=== PATIENT | female | born 1935 | race Caucasian/White ===

== ENCOUNTER 2017-08-19 15:29 | Emergency (ER) | payer OTHER ==
--- NOTE | 2017-08-19 15:33 | PDOC ---
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 The patient states she attended a [employer] and woke up the next day feeling sick. She states she took a Claritin this morning without relief of her symptoms. She states she feels like she has the flu. The patient also states she has an appetite, however, can not eat because her mouth feels too dry and her throat hurts. She denies chest pain, shortness of breath, and dizziness. She denies nausea, vomit, diarrhea and constipation. She denies dysuria, frequency, urgency and hematuria. Allergies: NKDA Past surgical history: Appendectomy PCP: Dr. Toy Tarango <Abbey Land - Last Filed: 08/19/17 15:47> <Deepa Cheek - Last Filed: 08/20/17 07:25> - General Chief Complaint: Respiratory Stated Complaint: COUGH Time Seen by Provider: 08/19/17 15:31 Past History <Abbey Land - Last Filed: 08/19/17 15:47> - Past Medical History Anemia: Yes Asthma: No Cancer: No Cardiac Disorders: Yes (MILD AORTIC STENOSIS) CVA: No COPD: (HX OF BRONCHITIS) CHF: No Dementia: No Diabetes: No GI Disorders: Yes (DIVERTICULOSIS, GASTRIC ULCER, REFLUX) Disorders: No HTN: Yes Hypercholesterolemia: Yes Liver Disease: No Seizures: No Thyroid Disease: No - Surgical History Abdominal Surgery: Yes Appendectomy: Yes Cardiac Surgery: No Cholecystectomy: No Lung Surgery: No Neurologic Surgery: No Orthopedic Surgery: No - Suicide/Smoking/Psychosocial Hx Smoking History: Never smoked Have you smoked in the past 12 months: No Hx Alcohol Use: No Drug/Substance Use Hx: No Substance Use Type: None <Deepa Cheek - Last Filed: 08/20/17 07:25> - Past Medical History Allergies/Adverse Reactions: Allergies Allergy/AdvReac Type Severity Reaction Status Date / Time No Known Allergies Allergy Verified 08/19/17 15:30 Home Medications: Ambulatory Orders Furosemide [Lasix -] 20 mg PO DAILY 11/21/14 Alendronate Na [Fosamax] 70 mg PO Q7D 08/19/17 Guaifenesin AC [Robitussin AC -] 5 ml PO HS PRN #20 liquid MDD 5 mL 08/19/17 Olmesartan Medoxomil [Benicar (Nf)] 40 mg PO DAILY 08/19/17 Omeprazole 40 mg PO DAILY 08/19/17 Review of Systems - Review of Systems Able to Perform ROS?: Yes Comments:: 08/19/17 15:48 GENERAL/CONSTITUTIONAL: (+) subjective fever, chills. NO weakness. HEAD, EYES, EARS, NOSE AND THROAT: (+) sore throat. Dry mouth. Nasal congestion. No change in vision. No ear pain or discharge. CARDIOVASCULAR: No chest pain or shortness of breath. RESPIRATORY: (+) cough, No wheezing, or hemoptysis. GASTROINTESTINAL: No nausea, vomiting, diarrhea or constipation. GENITOURINARY: No dysuria, frequency, or change in urination. MUSCULOSKELETAL: (+) diffuse body aches. No joint or muscle swelling. No neck or back pain. SKIN: No rash NEUROLOGIC: (+) headache, No vertigo, loss of consciousness, or change in strength/sensation. ENDOCRINE: No increased thirst. No abnormal weight change. HEMATOLOGIC/LYMPHATIC: No anemia, easy bleeding, or history of blood clots. ALLERGIC/IMMUNOLOGIC: No hives or skin allergy. <Abbey Land - Last Filed: 08/19/17 15:47> *Physical Exam - Vital Signs Last Vital Signs Temp Pulse Resp BP Pulse Ox 99.2 F 87 22 127/73 97 08/19/17 15:30 08/19/17 15:30 08/19/17 15:30 08/19/17 15:30 08/19/17 15:30 <Abbey Land - Last Filed: 08/19/17 15:47> - Physical Exam Comments: GENERAL: Awake, alert, and fully oriented, in no acute distress. Appears ill but nontoxic. HEAD: No signs of trauma EYES: PERRLA, EOMI, sclera anicteric, conjunctiva clear ENT: Auricles normal inspection, hearing grossly normal, nares patent, oropharynx clear without exudates. Dry mucosa NECK: Normal ROM, supple, no lymphadenopathy, JVD, or masses LUNGS: Breath sounds equal, clear to auscultation bilaterally. No wheezes, and no crackles. Intermittent hacking cough. HEART: Regular rate and rhythm, normal S1 and S2, no murmurs, rubs or gallops ABDOMEN: Soft, nontender, normoactive bowel sounds. No guarding, no rebound. No masses EXTREMITIES: Normal range of motion, no edema. No clubbing or cyanosis. No cords, erythema, or tenderness NEUROLOGICAL: Cranial nerves II through XII grossly intact. Normal speech, normal gait SKIN: Warm, Dry, normal turgor, no rashes or lesions noted. <Deepa Cheek - Last Filed: 08/20/17 07:25> ED Treatment Course - LABORATORY CBC & Chemistry Diagram: 08/19/17 15:45 08/19/17 16:35 <Deepa Cheek - Last Filed: 08/20/17 07:25> Medical Decision Making - Medical Decision Making CXR reviewed, no focal consolidation. Flu swab positive. Patient is out of the window for tamiflu. She improved with neb treatment and tylenol in ED. Good air movement on lung exam, no signs of tachypnea. Stable for DC home. <Deepa Cheek - Last Filed: 08/20/17 07:25> *DC/Admit/Observation/Transfer - Attestations Scribe Attestion: 08/19/17 15:50 Documentation prepared by Abbey Land, acting as medical driver for Deepa Cheek MD, <[place] - Last Filed: 08/19/17 15:47> - Discharge Dispostion Admit: No <Deepa Cheek - Last Filed: 08/20/17 07:25> Diagnosis at time of Disposition: Viral URI with cough - Discharge Dispostion Disposition: HOME Condition at time of disposition: Stable - Prescriptions Prescriptions: Guaifenesin AC [Robitussin AC -] 5 ml PO HS PRN #20 liquid MDD 5 mL PRN Reason: Cough - Referrals Referrals: Toy Tarango MD [Primary Care Provider] - - Patient Instructions Printed Discharge Instructions: DI for Viral Upper Respiratory Infection -- Adult, DI for Influenza -- Adult Print Language: BELARUSIAN - Post Discharge Activity
[2017-08-19 15:42] VITALS: BP 127/73; PULSE 87; BMI 30.2
[2017-08-19] MEDS ORDERED: ACETAMINOPHEN 1000 MG/100 ML VIAL (NON FORMULARY) IVPB ONE (15:43)
[2017-08-19] MEDS ORDERED: SODIUM CHLORIDE 1,000 ML IV STA (15:43)
[2017-08-19] MEDS ORDERED: ACETAMINOPHEN INJECTION 100 ML IVPB ONE (15:51)
[2017-08-19 16:28] LABS: BASO % 0.6 % (0-2.0); EOS % 5.5 % (0-4.5); HEMATOCRIT 35.8 % (32.4-45.2); HEMOGLOBIN 11.9 GM/dl (10.7-15.3); LYMPH % 20.2 % (8-40); MCH 30.4 pg (25.7-33.7); MCHC 33.3 g/dl (32.0-36.0); MEAN CELL VOLUME 91.3 fl (80-96); MEAN PLT VOLUME 10.1 fl (7.5-11.1); MONO % 9.8 % (3.8-10.2); NEUT % 63.9 % (42.8-82.8); PLATELET COUNT 144 K/MM3 (134-434); RBC 3.92 M/mm3 (3.60-5.2); RDW 13.4 % (11.6-15.6); WHITE BLOOD COUNT 4.4 K/mm3 (4.0-10.8)
[2017-08-19 17:08] LABS: ALBUMIN 3.9 g/dl (3.5-5.0); ALK PHOS 54 U/L (32-92); ANION GAP 9 (8-16); BILIRUBIN,TOTAL 0.8 mg/dl (0.2-1.0); BLOOD UREA NITROGEN 16 mg/dl (7-18); CALCIUM 8.7 mg/dl (8.4-10.2); CHLORIDE 104 mmol/L (98-107); CO2 22 mmol/L (22-28); CREATININE 0.8 mg/dl (0.6-1.3); GLUCOSE,RANDOM 98 mg/dl (74-106); POTASSIUM 3.9 mmol/L (3.5-5.1); SGOT/AST 33 U/L (10-42); SGPT/ALT 29 U/L (10-40); SODIUM 135 mmol/L (136-145); TOT PROT 6.9 g/dl (6.4-8.3)
[2017-08-19 17:09] VITALS: TEMP 98.9
[2017-08-19] MEDS ORDERED: ALBUTEROL SO4 0.083% IH SOL 2.5 MG/3 ML VIAL.NEB. NEB ONE ×2 (17:44)
== END 2017-08-19 18:14 | disposition home or self-care (01) ==
LOC: FER 15:29
PROC: 3E0F7GC Introduction of Other Therapeutic Substance into Respiratory Tract, Via Natural or Artificial Opening (ICD-10-PCS; principal; 2017-08-19)
PROC: 3E033NZ Introduction of Analgesics, Hypnotics, Sedatives into Peripheral Vein, Percutaneous Approach (ICD-10-PCS; 2017-08-19)
PROC: 3E0337Z Introduction of Electrolytic and Water Balance Substance into Peripheral Vein, Percutaneous Approach (ICD-10-PCS; 2017-08-19)
DX: J06.9 Acute upper respiratory infection, unspecified (principal); R05 Cough
CPT/HCPCS: 36415; 71046-TC; 80053; 85025; 87040; 87804; 99284-25

== ENCOUNTER 2018-06-27 06:32 | Day surgery (SDC) | payer OTHER ==
[2018-05-21 11:34] VITALS: BMI 29.2
[2018-06-27] MEDS: CYCLOPENTOLATE 2% OPHTH SOLN 2 ML BOTTLE ONE ×3 (07:00→07:10)
[2018-06-27] MEDS: PHENYLEPHRINE 2.5% OPHTH SOLN 15 ML BOTTLE ONE ×3 (07:00→07:10)
[2018-06-27] MEDS: TROPICAMIDE 1% OPHTH SOLN 15 ML BOTTLE ONE ×3 (07:00→07:10)
[2018-06-27] MEDS: CIPROFLOXACIN 0.3% EYE DROPS 5 ML BOTTLE ONE ×3 (07:00→07:10)
[2018-06-27] MEDS ORDERED: CARBACHOL 0.01% INTRA-OCULAR 1.5 ML VIAL ONE (07:18)
[2018-06-27] MEDS ORDERED: TETRACAINE 0.5% OPHTH SOLN 2 ML BOTTLE ONE ×2 (07:18→07:19)
[2018-06-27] MEDS ORDERED: LIDOCAINE 1% P/F 10 MG/ML VIAL ONE (07:18)
[2018-06-27] MEDS ORDERED: NEO/POLYMYX B SULF/DEXAMETH OPHTHALMIC 5ML BOTTLE ONE (07:18)
[2018-06-27] MEDS ORDERED: BSS (NA/CA/MG/K) BALANCED SALT SOLUTION OPHTH SOLN 15 ML BOTTLE ONE (07:18)
[2018-06-27] MEDS ORDERED: EPINEPHrine 1:1,000 1 MG/1 ML - 30ML VIAL (INJECTION) ONE (07:19)
[2018-06-27] MEDS ORDERED: MIDAZOLAM HCL 2 MG/2 ML SINGLE DOSE VIAL ONE (07:30)
--- NOTE | 2018-06-27 08:35 | OP ---
DATE OF OPERATION: 06/27/2018 OPERATIVE PROCEDURE: Lens Phacoemulsification with Posterior Chamber Intraocular Lens Placement Left Eye PREOPERATIVE DIAGNOSIS: Visually Significant Cataract of Left Eye POSTOPERATIVE DIAGNOSIS: Visually Significant Cataract of Left Eye SURGEON: Abhi Mccray M.D. ANESTHESIA: MAC ANESTHESIOLOGIST: PROCEDURE: The patient was brought to the operating room and placed under monitored anesthesia care by Anesthesia. A drop of Tetracaine was then placed over the left eye. The patient was then prepped and draped in the usual sterile manner. A speculum was then placed over the left eye. The eye was then well irrigated with copious amounts of BSS (balanced salt solution). The operating microscope was then moved into position. A paracentesis was performed using a 15 degree blade. At this point 0.5 mL of 1% preservative-free lidocaine was injected into the anterior chamber. Amvisc plus was then injected into the anterior chamber. A clear corneal incision was then formed using a 2.2 mm keratome. A capsulorrhexis was then performed in a continuous circular fashion beginning with a cystotome, completed with an Utratas forceps. Hydrodissection was then performed using BSS on a cannula. The phaco probe was then introduced through the corneal wound and the cataract was removed using the phaco chop technique. Approximately 3 seconds of absolute phaco time was used. The remaining cortex was then removed using irrigation and aspiration with an I/A probe. The capsule was then filled with regular Amvisc and the capsule was noted to be intact. A previously selected foldable posterior chamber intraocular lens was then injected into the capsule through the corneal wound using a lens injector. It was then dialed into position using a Sinskey hook. The Amvisc was then removed using irrigation and aspiration. Miostat was then injected through the paracentesis to constrict the pupil. The paracentesis and corneal wound were then hydrated and noted to be water tight. A drop of Maxitrol was then placed over the eye. The speculum was removed and clear shield was taped over the eye. The patient tolerated the procedure well and there were no surgical complications. The patient was asked to follow up in my office the next day. ABHI MCCRAY M.D. DEBBI/[id number]
[2018-06-27 09:02] VITALS: BP 143/67; PULSE 68; TEMP 97.9
== END 2018-06-27 09:03 | disposition home or self-care (01) ==
LOC: FASU 06:32
PROVIDERS: ATTEND Ophthalmology
PROC: 08RK3JZ Replacement of Left Lens with Synthetic Substitute, Percutaneous Approach (ICD-10-PCS; principal; 2018-06-27 07:55)
DX: H26.8 Other specified cataract (principal)

== ENCOUNTER 2018-11-28 18:49 | Emergency (ER) | payer OTHER ==
[2018-11-28 18:54] VITALS: BP 122/72; PULSE 83; TEMP 98.8; BMI 28.7
--- NOTE | 2018-11-28 19:08 | PDOC ---
History of Present Illness - General Chief Complaint: Cold Symptoms Stated Complaint: COUGH Time Seen by Provider: 11/28/18 19:08 - History of Present Illness Initial Comments: 11/28/18 20:31 The patient is a 83 year old female, with a significant PMH of anemia, mild aortic stenosis, bronchitis, diverticulosis, gastric ulcer, HTN,and HDL who presents to the emergency department complaining of coughing that began approximately 5 to 6 days ago. The patient notices yellowish whitish phlegm with the cough. The patient states she endorses associated symptoms of fever ( not measured), diarrhea, chills, and SOB. The patient denies any recent travels or sick contact. Denies chest pain, headache and dizziness. Denies nausea, vomit, and constipation.Denies dysuria, frequency, urgency and hematuria. Allergies: NKDA Past surgical history: None reported Social history: None reported PCP: Nadine Kramer ADULT ROS GENERAL/CONSTITUTIONAL:+Fever +Chills. No weakness. HEAD, EYES, EARS, NOSE AND THROAT: No change in vision. No ear pain or discharge. No sore throat. CARDIOVASCULAR: No chest pain or shortness of breath. RESPIRATORY:+cough. No wheezing, or hemoptysis. GASTROINTESTINAL:+Diarrhea No nausea, vomiting or constipation. GENITOURINARY: No dysuria, frequency, or change in urination. MUSCULOSKELETAL: No joint or muscle swelling or pain. No neck or back pain. SKIN: No rash NEUROLOGIC: No headache, vertigo, loss of consciousness, or change in strength/ sensation. ENDOCRINE: No increased thirst. No abnormal weight change. HEMATOLOGIC/LYMPHATIC: No anemia, easy bleeding, or history of blood clots. ALLERGIC/IMMUNOLOGIC: No hives or skin allergy. ADULT EXAM GENERAL: Awake, alert, and fully oriented, in no acute distress HEAD: No signs of trauma EYES: PERRLA, EOMI, sclera anicteric, conjunctiva clear ENT: Auricles normal inspection, hearing grossly normal, nares patent, oropharynx clear without exudates. Moist mucosa NECK: Normal ROM, supple, no lymphadenopathy, JVD, or masses LUNGS:+Scattered bilateral expiratory wheezing HEART: Regular rate and rhythm, normal S1 and S2, no murmurs, rubs or gallops ABDOMEN: Soft, nontender, normoactive bowel sounds. No guarding, no rebound. No masses EXTREMITIES:+trace bilateral ankle pitting edema. NEUROLOGICAL: Cranial nerves II through XII grossly intact. Normal speech, normal gait SKIN: Warm, Dry, normal turgor, no rashes or lesions noted. Past History - Past Medical History Allergies/Adverse Reactions: Allergies Allergy/AdvReac Type Severity Reaction Status Date / Time No Known Allergies Allergy Verified 11/28/18 18:50 Home Medications: Ambulatory Orders Azilsartan Medoxomil [Edarbi] 40 mg PO HS 05/21/18 Albuterol Sulfate Inhaler - [Ventolin HFA Inhaler -] 1 inh PO Q6H PRN #1 inh Azithromycin 250 mg PO DAILY #4 tablet 11/28/18 Benzonatate [Tessalon Pearls -] 100 mg PO TID PRN #21 capsule 11/28/18 Anemia: Yes Asthma: No Cancer: No Cardiac Disorders: Yes (MILD AORTIC STENOSIS) CVA: No COPD: No (HX OF BRONCHITIS) CHF: No Dementia: No Diabetes: No GI Disorders: Yes (DIVERTICULOSIS, GASTRIC ULCER, REFLUX) Disorders: No HTN: Yes Hypercholesterolemia: Yes Liver Disease: No Seizures: No Thyroid Disease: No - Surgical History Abdominal Surgery: No (SEE BELOW) Appendectomy: No Cardiac Surgery: No Cholecystectomy: No Lung Surgery: No Neurologic Surgery: No Orthopedic Surgery: No - Suicide/Smoking/Psychosocial Hx Smoking History: Never smoked Have you smoked in the past 12 months: No Hx Alcohol Use: No Drug/Substance Use Hx: No Substance Use Type: None Hx Substance Use Treatment: No *Physical Exam - Vital Signs Last Vital Signs Temp Pulse Resp BP Pulse Ox 98.8 F 83 19 122/72 97 11/28/18 18:49 11/28/18 18:49 11/28/18 18:49 11/28/18 18:49 11/28/18 18:49 ED Treatment Course - RADIOLOGY Radiology Studies Ordered: Category Date Time Status CHEST PA & LAT [RAD] Stat Radiology 11/28/18 18:59 Ordered Medical Decision Making - Medical Decision Making Chest x-ray performed: Interpretation by -no evidence of infiltrate/ effusion or other acute pathology. Clinical presentation most consistent with acute bronchitis. DuoNeb nebulizer treatment given. Patient feels marked relief in breathing after the nebulizer treatment. Reexamination of lungs reveals decrease in wheezing and significant increase in air exchange. Patient will be started on azithromycin course with first dose of 500 mg administered here. Remainder of the course of 250 mg daily for 4 days sent to her pharmacy. Albuterol inhaler to be used up to 3 times a day as needed for wheezing also will be prescribed. Patient asked for medication for coughing and prescription for Tessalon Perles 3 times a day sent to her pharmacy. Patient should return to the emergency room if she has persistent shortness of breath, severe cough or persistent high fever. Patient has follow-up appointment with her PMD scheduled on Monday , if the *DC/Admit/Observation/Transfer Diagnosis at time of Disposition: Bronchitis - Discharge Dispostion Disposition: HOME Condition at time of disposition: Stable - Prescriptions Prescriptions: Albuterol Sulfate Inhaler - [Ventolin HFA Inhaler -] 1 inh PO Q6H PRN #1 inh PRN Reason: Wheezing Azithromycin 250 mg PO DAILY #4 tablet Benzonatate [Tessalon Pearls -] 100 mg PO TID PRN #21 capsule PRN Reason: Cough - Referrals Referrals: Nadine Kramer MD [Primary Care Provider] - - Patient Instructions Printed Discharge Instructions: DI for Acute Bronchitis Additional Instructions: Rest; drink plenty of water Azithromycin 250 mg daily for the next 4 days; next dose tomorrow Albuterol inhaler: 1 puff every 6 hours as needed for wheezing/shortness of breath Tessalon Perle one capsule by mouth up to 3 times a day as needed for cough If the test for influenza is positive, we will call you and send prescription to pharmacy Return to ER if you have shortness of breath/chest pain/high fever Follow-up with your doctor on December 05 as scheduled - Post Discharge Activity
[2018-11-28] MEDS ORDERED: ALBUTEROL SO4 2.5/IPRATROPIUM 0.5 INH SOL 3 ML VIAL.NEB. NEB ONE ×2 (20:28→20:29)
[2018-11-28] MEDS ORDERED: AZITHROMYCIN 250 MG TABLET PO ONE (21:12)
[2018-11-28] MEDS ORDERED: AZITHROMYCIN 250 MG TABLET ONE (21:23)
== END 2018-11-28 21:28 | disposition home or self-care (01) ==
LOC: FER 18:49
PROC: 3E0F7GC Introduction of Other Therapeutic Substance into Respiratory Tract, Via Natural or Artificial Opening (ICD-10-PCS; principal; 2018-11-28)
DX: J40 Bronchitis, not specified as acute or chronic (principal); E78.00 Pure hypercholesterolemia, unspecified; I10 Essential (primary) hypertension; I35.0 Nonrheumatic aortic (valve) stenosis
CPT/HCPCS: 71046-TC-FY; 87804; 94640; 99282-25

== ENCOUNTER 2019-07-13 20:38 | Emergency (ER) | payer OTHER ==
[2019-07-13 20:57] VITALS: BP 140/72; PULSE 74; TEMP 99.1; BMI 28.6
[2019-07-13] MEDS ORDERED: ALBUTEROL SO4 2.5/IPRATROPIUM 0.5 INH SOL 3 ML VIAL.NEB. NEB ONE ×2 (21:18→21:20)
[2019-07-13] MEDS ORDERED: DEXAMETHASONE SOD PHOSPHATE 10 MG/1 ML VIAL IVPUSH ONE (21:18)
[2019-07-13] MEDS ORDERED: DEXAMETHASONE SOD PHOSPHATE 10 MG/1 ML VIAL ONE (21:20)
--- NOTE | 2019-07-13 21:23 | PDOC ---
Documentation entered by Krista Montiel SCRIBE, acting as scribe for Gauri Morse MD. Gauri Morse MD: This documentation has been prepared by the manfredibe, Krista Montiel SCRIBE, under my direction and personally reviewed by me in its entirety. I confirm that the documentation accurately reflects all work, treatment, procedures, and medical decision making performed by me. History of Present Illness - General Chief Complaint: Respiratory Stated Complaint: COUGH Time Seen by Provider: 07/13/19 20:41 History Source: Patient Exam Limitations: No Limitations - History of Present Illness Initial Comments: 07/13/19 21:26 The patient is a 84 year old female who presents to the ED complaining of a non productive cough that began approximately a month ago and has progressively worsened this past week prompting her to the ER. She denies recent fevers, chills, headache or dizziness. She denies recent nausea, vomiting, diarrhea or constipation. She denies recent dysuria, frequency, urgency or hematuria. She denies recent chest pain or shortness of breath. PAST MEDICAL HISTORY: anemia, mild aortic stenosis, bronchitis, diverticulosis , gastric ulcer, HTN,and HDL PAST SURGICAL HISTORY: no significant history FAMILY HISTORY: no pertinent history SOCIAL HISTORY: Pt lives with family. MEDICATIONS: reviewed ALLERGIES: NKDA PCP: Dr. Kramer General: No fevers or chills, no weakness, no weight loss HEENT: No change in vision. No sore throat,. No ear pain CardioVascular: No chest pain or shortness of breath Respiratory:+ cough. No wheezing. Gastrointestinal: no nausea, vomiting, diarrhea or constipation, No rectal bleeding Genitourinary: No dysuria, hematuria, or frequency Musculoskeletal: No joint or muscle pain or swelling Neurologic: No headache, vertigo, dizziness or loss of consciousness Psychiatric: nor depression Skin: No rashes or easy bruising Endocrine: no increased thirst or abnormal weight change Allergic: no skin or latex allergy All other systems reviewed and normal General: Well-nourished well-developed individual, no acute distress HEENT: Throat: Normal, tonsils normal, no erythema or exudate Neck: Supple, no meningeal signs, no lymphadenopathy Eyes::Pupils equal reactive and round, extraocular motion intact Chest: Nontender to palpation Cardiac: S1-S2 normal, regular rate and rhythm, no murmurs rubs or gallops Respiratory:+ mild expiratory wheezing in upper lungs +dry non productive cough Abdomen: Soft, nondistended, normal bowel sounds, nontender to palpation diffusely Extremities: Warm, dry, no cyanosis, clubbing, or edema Skin: No rashes Neuro: Alert and oriented x3, nonfocal exam, grossly intact, normal gait Psych: Normal mood and affect 07/13/19 22:33 Reevaluation the albuterol neb and Decadron did not appear to improve her symptoms significantly. Patient work-up was otherwise negative including a BNP and chest x-ray and labs. Patient is also ready taking Augmentin which she will continue I sent a prescription to her pharmacy for some Jerald Gibsones Patient instructed to follow-up with her primary care doctor on Monday. Is this a multiple visit Asthma Patient?: No Past History - Past Medical History Allergies/Adverse Reactions: Allergies Allergy/AdvReac Type Severity Reaction Status Date / Time No Known Allergies Allergy Verified 11/28/18 18:50 Home Medications: Ambulatory Orders Azilsartan Medoxomil [Edarbi] 40 mg PO HS 05/21/18 Benzonatate [Tessalon Pearls -] 100 mg PO TID PRN #21 capsule 11/28/18 Amox-Tr/K Cl [Augmentin - 875Mg Tablet] 1 tab PO BID 07/13/19 Benzonatate [Tessalon Pearls -] 100 mg PO TID #21 capsule 07/13/19 Cholecalciferol (Vitamin D3) [D3-50] 50,000 unit PO WEEKLY 07/13/19 Ferrous Sulfate [Feosol] 325 mg PO TID 07/13/19 Guaifenesin/Dextromethorphan [Guaifenesin Dm Syrup] 5 ml PO Q4H PRN 07/13/19 Guaifenesin/Dextromethorphan [Mucus Dm Max ER 1,200-60 mg Tb] 1 each PO Q4H PRN 07/13/19 Meclizine HCl [Antivert -] 12.5 mg PO BID PRN 07/13/19 Anemia: Yes Asthma: No Cancer: No Cardiac Disorders: Yes (MILD AORTIC STENOSIS) CVA: No COPD: No (HX OF BRONCHITIS) CHF: No Dementia: No Diabetes: No GI Disorders: Yes (DIVERTICULOSIS, GASTRIC ULCER, REFLUX) Disorders: No HTN: Yes Hypercholesterolemia: Yes Liver Disease: No Seizures: No Thyroid Disease: No - Surgical History Abdominal Surgery: No Appendectomy: No Cardiac Surgery: No Cholecystectomy: No Lung Surgery: No Neurologic Surgery: No Orthopedic Surgery: No - Psycho Social/Smoking Cessation Hx Smoking History: Never smoked Have you smoked in the past 12 months: No Hx Alcohol Use: No Drug/Substance Use Hx: No Substance Use Type: None Hx Substance Use Treatment: No *Physical Exam - Vital Signs Last Vital Signs Temp Pulse Resp BP Pulse Ox 99.1 F 74 16 140/72 98 07/13/19 20:39 07/13/19 20:39 07/13/19 20:39 07/13/19 20:39 07/13/19 20:39 ED Treatment Course - LABORATORY CBC & Chemistry Diagram: 07/13/19 21:15 07/13/19 21:15 - RADIOLOGY Radiology Studies Ordered: Category Date Time Status CHEST X-RAY PORTABLE* [RAD] Stat Radiology 07/13/19 20:47 Taken Discharge - Discharge Information Problems reviewed: Yes Clinical Impression/Diagnosis: Cough Condition: Good Disposition: HOME - Admission No - Additional Discharge Information Prescriptions: Benzonatate [Tessalon Pearls -] 100 mg PO TID #21 capsule - Follow up/Referral Referrals: Toy Tarango MD [Primary Care Provider] - - Patient Discharge Instructions Additional Instructions: Your work-up was negative for any pneumonia, bronchitis or acute causes of your cough. I sent a prescription to your pharmacy for Tessalon Perles which should help suppress the cough. Call your doctor on Monday and follow-up with your doctor. Bring copies of your EKG and blood work with you when you go to your doctor. Return to the emergency department immediately with ANY new, persistent or worsening symptoms. Continue any medications as previously prescribed by your physician. You should follow up with your primary doctor as soon as possible regarding today's emergency department visit. . Please make sure your doctor reviews the results of your emergency evaluation. Thank you for coming to the Emergency Department today for your care. It was a pleasure to see you today. Please note that your evaluation is INCOMPLETE until you follow-up with your doctor. - Post Discharge Activity
[2019-07-13 21:48] LABS: BASO % 0.4 % (0-2.0); EOS % 3.6 % (0-4.5); HEMATOCRIT 31.4 % (32.4-45.2); HEMOGLOBIN 10.3 GM/dl (10.7-15.3); LYMPH % 38.9 % (8-40); MCH 30.5 pg (25.7-33.7); MCHC 32.7 g/dl (32.0-36.0); MEAN CELL VOLUME 93.2 fl (80-96); MEAN PLT VOLUME 9.9 fl (7.5-11.1); MONO % 11.8 % (3.8-10.2); NEUT % 45.3 % (42.8-82.8); PLATELET COUNT 167 K/MM3 (134-434); RBC 3.37 M/mm3 (3.60-5.2); RDW 13.2 % (11.6-15.6); WHITE BLOOD COUNT 4.2 K/mm3 (4.0-10.8)
[2019-07-13 21:54] LABS: ALBUMIN 4.1 g/dl (3.4-5.0); BILIRUBIN,TOTAL 0.6 mg/dl (0.2-1); CALCIUM 8.9 mg/dl (8.5-10); POTASSIUM 4.1 mmol/L (3.5-5.1); TOT PROT 7.4 g/dl (6.4-8.2)
--- NOTE | 2019-07-15 10:42 | EKG ---
Test Reason : Blood Pressure : / mmHG Vent. Rate : 066 BPM Atrial Rate : 066 BPM P-R Int : 268 ms QRS Dur : 090 ms QT Int : 386 ms P-R-T Axes : 025 005 013 degrees QTc Int : 404 ms SINUS RHYTHM WITH 1ST DEGREE A-V BLOCK OTHERWISE NORMAL ECG WHEN COMPARED WITH ECG OF 13-FEB-2010 11:23, [place] INTERVAL HAS INCREASED Confirmed by BRYCE JOHNSON MD ([id number]) on 07/15/2019 10:42:03 AM Referred By: Confirmed By:BRYCE JOHNSON MD
== END 2019-07-13 22:41 | disposition home or self-care (01) ==
LOC: SUPCPDRO 20:38 → FER 20:38
PROC: 3E0F7GC Introduction of Other Therapeutic Substance into Respiratory Tract, Via Natural or Artificial Opening (ICD-10-PCS; principal; 2019-07-13)
PROC: 3E033GC Introduction of Other Therapeutic Substance into Peripheral Vein, Percutaneous Approach (ICD-10-PCS; 2019-07-13)
DX: R05 Cough (principal); D64.9 Anemia, unspecified; I10 Essential (primary) hypertension; E78.00 Pure hypercholesterolemia, unspecified; I35.0 Nonrheumatic aortic (valve) stenosis; K21.9 Gastro-esophageal reflux disease without esophagitis
CPT/HCPCS: 36415; 71045-TC-FY; 80053; 82550; 82553; 83880; 84484; 85025; 87040; 93005; 99282-25; J1100

== ENCOUNTER 2021-11-06 20:27 | Emergency (ER) | payer OTHER ==
[2021-11-06 20:57] VITALS: BP 141/93; PULSE 68; BMI 28.8
[2021-11-06] MEDS ORDERED: ACETAMINOPHEN 1000 MG/100 ML BAG IVPB ONE (21:09)
[2021-11-06] MEDS ORDERED: SODIUM CHLORIDE 1,000 ML IV SCH (21:15)
[2021-11-06] MEDS ORDERED: ACETAMINOPHEN INJECTION 100 ML IVPB ONE (21:32)
[2021-11-06 22:18] LABS: ALBUMIN 3.9 g/dl (3.4-5.0); BILIRUBIN,TOTAL 0.8 mg/dl (0.2-1); CALCIUM 9.1 mg/dl (8.5-10); CREATININE 0.8 mg/dl (0.55-1.3); TOT PROT 7.2 g/dl (6.4-8.2)
[2021-11-06 23:19] LABS: BASO % 0.5 % (0-2.0); EOS % 2.4 % (0-4.5); HEMATOCRIT 36.6 % (32.4-45.2); HEMOGLOBIN 12.4 GM/dL (10.7-15.3); LYMPH % 22.5 % (8-40); MCH 30.5 pg (25.7-33.7); MCHC 33.9 g/dl (32.0-36.0); MEAN CELL VOLUME 89.9 fl (80-96); MONO % 10.4 % (3.8-10.2); NEUT % 64.2 % (42.8-82.8); PLATELET COUNT 146 10^3/uL (134-434); RBC 4.07 M/mm3 (3.60-5.2); RDW 14.8 % (11.6-15.6); WHITE BLOOD COUNT 6.2 K/mm3 (4.0-10.0)
[2021-11-06] MEDS ORDERED: AZITHROMYCIN IVPB 500 MG in DEXTROSE 5%-WATER - 250 ML IVPB ONE (23:26)
[2021-11-06] MEDS ORDERED: AZITHROMYCIN 500 MG VIAL IVPB ONE (23:26)
[2021-11-07 00:21] VITALS: TEMP 98.1
== END 2021-11-07 00:21 | disposition home or self-care (01) ==
LOC: FER 20:27
PROC: 3E0333Z Introduction of Anti-inflammatory into Peripheral Vein, Percutaneous Approach (ICD-10-PCS; principal; 2021-11-06)
PROC: 3E03329 Introduction of Other Anti-infective into Peripheral Vein, Percutaneous Approach (ICD-10-PCS; 2021-11-06)
DX: J20.9 Acute bronchitis, unspecified (principal)
CPT/HCPCS: 36415; 71045-TC-FY; 80053; 81003; 81015; 83605; 83880; 85025; 87040; 87086; 93005; 99285-25; C9803-CS; U0003; U0005

== ENCOUNTER 2023-08-18 17:40 | Emergency (ER) | payer OTHER ==
[2023-08-18 18:02] VITALS: BP 110/72; PULSE 93; RESP 16; TEMP 98; BMI 33.6
[2023-08-18] MEDS ORDERED: ACETAMINOPHEN 325 MG TABLET (FP) PO ONE (18:05)
[2023-08-18] MEDS ORDERED: ACETAMINOPHEN 325 MG TABLET (FP) ONE (18:07)
== END 2023-08-18 18:42 | disposition home or self-care (01) ==
LOC: FER 17:40
DX: R50.9 Fever, unspecified (principal); R05.9 Cough, unspecified; R09.81 Nasal congestion; M79.10 Myalgia, unspecified site; J06.9 Acute upper respiratory infection, unspecified; U07.1 COVID-19
CPT/HCPCS: 0241U-QW; 71046-TC-FY; 99284-25

== ENCOUNTER 2023-12-14 11:52 | Emergency (ER) | payer OTHER ==
[2023-12-14 12:16] VITALS: RESP 20; BMI 27.1
[2023-12-14] MEDS ORDERED: ALBUTEROL SO4 2.5/IPRATROPIUM 0.5 INH SOL 3 ML VIAL.NEB. NEB ONE (12:34)
[2023-12-14] MEDS: ALBUTEROL SO4 2.5/IPRATROPIUM 0.5 INH SOL 3 ML VIAL.NEB. NEB ONE (12:44)
[2023-12-14 13:59] LABS: HEMATOCRIT 35.2 % (32.4-45.2); MCH 31.2 pg (25.7-33.7); MEAN CELL VOLUME 91.6 fl (80-96); MEAN PLT VOLUME 10.3 fl (7.5-11.1); PLATELET COUNT 126.4 10^3/uL (134-434); RBC 3.84 10^6/uL (3.60-5.2); RDW 14.7 % (11.6-15.6); WHITE BLOOD COUNT 5.7 10^3/uL (4.0-10.8)
[2023-12-14] MEDS: DEXAMETHASONE SOD PHOSPHATE 10 MG/1 ML VIAL IVPUSH ONE (14:02)
[2023-12-14] MEDS ORDERED: AZITHROMYCIN 500 MG TABLET ONE (14:08)
[2023-12-14] MEDS ORDERED: predniSONE 20 MG TABLET (UD) ONE (14:08)
[2023-12-14] MEDS: AZITHROMYCIN 500 MG TABLET PO ONE (14:11)
[2023-12-14] MEDS: predniSONE 20 MG TABLET (UD) PO ONE (14:11)
[2023-12-14 14:31] LABS: ALBUMIN 4.5 g/dl (3.4-5.0); BILIRUBIN,TOTAL 0.8 mg/dl (0.2-1); CALCIUM 8.8 mg/dl (8.5-10.1); CREATININE 1.2 mg/dl (0.6-1.3); POTASSIUM 3.8 mmol/L (3.5-5.1); TOT PROT 7.6 g/dl (6.4-8.2)
[2023-12-14 15:48] LABS: PLATELET ESTIMATE SLT DECREASE
[2023-12-14 15:53] VITALS: BP 127/57; PULSE 59; TEMP 98.3
== END 2023-12-14 16:06 | disposition home or self-care (01) ==
LOC: FER 11:52
PROC: 3E030GC Introduction of Other Therapeutic Substance into Peripheral Vein, Open Approach (ICD-10-PCS; principal; 2023-12-14)
PROC: 3E0F7GC Introduction of Other Therapeutic Substance into Respiratory Tract, Via Natural or Artificial Opening (ICD-10-PCS; 2023-12-14)
DX: J40 Bronchitis, not specified as acute or chronic (principal); R05.9 Cough, unspecified; R09.81 Nasal congestion; Z20.822 Contact with and (suspected) exposure to COVID-19
CPT/HCPCS: 0241U-QW; 36415; 71046-TC-FY; 80053; 84484; 85027; 93005; 94640; 96374; 99285-25; J1100